=== PATIENT | male | born 1995 | race Caucasian/White ===

== ENCOUNTER 2024-08-20 13:00 | Outpatient (CLI) | payer OTHER, SELFPAY ==
[2024-08-20 13:24] LABS: Hemoglobin 15.2 g/dL (14.0-18.0); Mean Corpuscular HGB Conc 34.5 g/dl (32-36); Mean Corpuscular Hemoglobin 30.4 pg (26-34); Mean Platelet Volume 9.7 fl (7.4-10.4); Platelet Count Result 263 k/mm3 (150-375); Red Cell Distribution Width 12.2 % (11.5-14.5)
[2024-08-20 13:34] LABS: Alanine Aminotransferase 20 U/L (6-50); Albumin Level 4.8 g/dL (3.5-5.1); Alkaline Phosphatase 51 U/L (38-126); Anion Gap 6 mmol/L (4-12); Aspartate Amino Transferase 25 U/L (17-59); Bilirubin,Total 0.9 mg/dL (0.2-1.3); Blood Urea Nitrogen 12 mg/dL (9-20); Carbon Dioxide 29 mmol/L (22-30); Chloride 102 mmol/L (98-107); Cholesterol 217 mg/dL (0-200); Estimated Glomerular Filt Rate > 60; Glucose 100 mg/dL (65-110); HDL Direct 35 mg/dL; Potassium 4.2 mmol/L (3.4-5.0); Sodium 137 mmol/L (137-145); Triglycerides 81 mg/dL (<150)
[2024-08-20 13:45] LABS: LDL Cholesterol Direct 144 mg/dL
[2024-08-20 14:05] LABS: Thyroid Stimulating Hormone 0.513 uIU/mL (0.465-4.680)
[2024-08-20 14:49] LABS: Vitamin D 25 Hydroxy 34.2 ng/mL
== END 2024-08-20 13:01 | disposition home or self-care (01) ==
LOC: ANHLAB 13:06
PROVIDERS: PCP Emergency Medicine; Visit Provider Emergency Medicine
DX: E55.9 Vitamin D deficiency, unspecified (principal); R53.83 Other fatigue; E03.9 Hypothyroidism, unspecified; E78.5 Hyperlipidemia, unspecified
CPT/HCPCS: 36415; 80053; 80061; 82306; 84443; 85027

== ENCOUNTER 2024-09-01 13:54 | Emergency (ER) | payer OTHER, SELFPAY ==
--- NOTE | ~2024-09-01 | CT_ITS ---
CT pelvis w con Ordering provider: Dustin Cohen MD History: . POSSIBLE ANAL MASS . Comparison: None. Technique: CT pelvis without oral and IV contrast. . Automated exposure control and iterative recons truction technique were employed. The dose-length product was 243.93 mGy-cm. 100 mL Omnipaque 350 was given. Findings: BONES: No pelvic fracture or hip dislocation. Normal visualized lower lumbar spine. The hip and sacro iliac joint spaces are well maintained. SUPERFICIAL SOFT TISSUES: Normal. PELVIC ORGANS: The bladder is normal. VISUALIZED BOWEL AND MESENTERY: Normal. No free air or free fluid. No lymphadenopathy. RETROPERITONEUM: Normal IMPRESSION: No definite perianal abnormality seen.If Clinically still suspicious follow-up advised. No bone and mid seen. Reviewed, dictated and finalized at location A.
[2024-09-01 13:55] VITALS: BP 122/81; PULSE 83; RESP 16; TEMP 36.5; O2SAT 100
--- NOTE | 2024-09-01 15:48 | ED.GENADULT ---
HPI - General Adult General Chief complaint: Unspecified Stated complaint: mass in rectum Time Seen by Provider: 09/01/24 15:45 Source: patient Related Data Allergies Allergy/AdvReac Type Severity Reaction Status Date / Time No Known Allergies Allergy Verified 08/19/24 13:41 [facility] Past Medical History Medical History (Updated 09/01/24 @ 17:37 by Dustin Cohen MD) Patient denies medical problems Surgical History Surgical History (Updated 08/19/24 @ 13:42 by Mamie Ardon MA) History of tonsillectomy Hx of adenoidectomy Family History Family History (Updated 08/19/24 @ 13:44 by Mamie Ardon MA) Mother IBS (irritable bowel syndrome) Social History Social History (Updated 08/19/24 @ 13:44 by Mamie Ardon MA) Smoking status: Smoker, status unknown Alcohol intake: never Substance use: never Substance use type: does not use Do You Feel Safe in your Home?: Yes Lack of Transportation: No Lack of Food: Never True Current Housing: I Have Housing Concerned About Future Housing: No Difficulty Paying Gas/Electric Bills: No Difficulty Paying for Meds: No Currently Unemployed: No Education: Associate Degree Difficulty w/ Childcare or Family Care: No Course Vital Signs Vital signs: Vital Signs Temperature 36.5 C 09/01/24 13:55 Pulse Rate 83 09/01/24 13:55 Respiratory Rate 16 09/01/24 13:55 Blood Pressure 122/81 09/01/24 13:55 Pulse Oximetry 100 09/01/24 13:55 Oxygen Delivery Room Air 09/01/24 13:55 Temperature 36.5 C 09/01/24 13:55 Pulse Rate 83 09/01/24 13:55 Respiratory Rate 16 09/01/24 13:55 Blood Pressure 122/81 09/01/24 13:55 Pulse Oximetry 100 09/01/24 13:55 Oxygen Delivery Room Air 09/01/24 13:55 Medical Decision Making [facility] Narrative Medical decision making narrative: PATIENT CAME TO THE ED WITH ANY PAIN VITAL SIGNS ARE STABLE PHYSICAL EXAMINATION SHOWING SKIN TAG AND POSSIBLE ANAL FISSURE A BLOOD WORKUP SHOWED NO ACUTE ABNORMALITY, CT PELVIS WITH IV CONTRAST SHOWED NO ACUTE ABNORMALITIES. 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 A PRESCRIPTION OF NIFEDIPINE OINTMENT TO 2% WAS GIVEN TO THE PATIENT PRIOR TO DISCHARGE Differential Diagnosis Differential Diagnosis: ANAL FISSURE, HEMORRHOIDS, ANAL MASS Vital Signs Vital Signs: Vital Signs Temperature 36.5 C 09/01/24 13:55 Pulse Rate 83 09/01/24 13:55 Respiratory Rate 16 09/01/24 13:55 Blood Pressure 122/81 09/01/24 13:55 Pulse Oximetry 100 09/01/24 13:55 Oxygen Delivery Room Air 09/01/24 13:55 Temperature 36.5 C 09/01/24 13:55 Pulse Rate 83 09/01/24 13:55 Respiratory Rate 16 09/01/24 13:55 Blood Pressure 122/81 09/01/24 13:55 Pulse Oximetry 100 09/01/24 13:55 Oxygen Delivery Room Air 09/01/24 13:55 Imaging Data Radiologist's impression: Impressions Pelvis CT 09/01/24 17:21 IMPRESSION: No definite perianal abnormality seen.If Clinically still suspicious follow-up advised. No bone and mid seen. Critical Care Time Critical Care Time Critical Care Time: No Discharge Plan Discharge Clinical Impression: Anal pain Patient Disposition: Home, Self-Care Condition: Stable Prescriptions: New docusate sodium [Colace] 100 mg capsule 100 mg PO BID Qty: 20 0RF No Action hydrocortisone acetate [Anusol-HC] 25 mg suppository 25 mg RECTAL DAILY Qty: 24 0RF hydrocortisone [Anusol-HC] 2.5 % cream with perineal applicator 1 applic RECTAL TID PRN (Reason: hemorrhoids) Qty: 30 0RF Follow-up/Referrals: Monico Silverio MD [Physician] - 09/02/24 Aaron Guerrero MD [Primary Care Provider] -
[2024-09-01 16:24] VITALS: BP 153/76; PULSE 67; RESP 15; TEMP 36.9; O2SAT 99
[2024-09-01 16:28] LABS: Basophils Absolute Auto 0.1 K/mm3 (0.0-0.1); Basophils Percent Auto 1.3 % (0.2-1.2); Eosinophils Absolute Auto 0.2 K/mm3 (0-0.3); Eosinophils Percent Auto 4.4 % (0-4.4); Hemoglobin 14.8 g/dL (14.0-18.0); Lymphocytes Absolute Auto 1.76 K/mm3 (0.9-3.2); Lymphocytes Percent Auto 33.3 % (18.3-44.2); Mean Corpuscular HGB Conc 34.4 g/dl (32-36); Mean Corpuscular Volume 87.2 fl (80-100); Mean Platelet Volume 9.6 fl (7.4-10.4); Monocytes Absolute Auto 0.4 K/mm3 (0.1-0.6); Monocytes Percent Auto 7.8 % (2.6-8.5); Neutrophils Absolute Auto 2.8 K/mm3 (1.3-6.7); Neutrophils Percent Auto 53.2 % (45.5-73.1); Platelet Count Result 266 k/mm3 (150-375); Red Blood Count 4.93 M/mm3 (4.6-6.20); Red Cell Distribution Width 12.4 % (11.5-14.5); White Blood Count 5.3 K/mm3 (4.5-10.0)
[2024-09-01 16:44] LABS: Alanine Aminotransferase 18 U/L (6-50); Albumin Level 4.5 g/dL (3.5-5.1); Alkaline Phosphatase 55 U/L (38-126); Anion Gap 9 mmol/L (4-12); Aspartate Amino Transferase 22 U/L (17-59); Bilirubin,Total 0.7 mg/dL (0.2-1.3); Blood Urea Nitrogen 13 mg/dL (9-20); Carbon Dioxide 27 mmol/L (22-30); Chloride 103 mmol/L (98-107); Estimated CRCL calculation 98 ml/min; Estimated Glomerular Filt Rate > 60; Glucose 92 mg/dL (65-110); Potassium 4.3 mmol/L (3.4-5.0); Sodium 139 mmol/L (137-145)
[2024-09-01 16:51] LABS: Estimated CRCL calculation 89 ml/min; Estimated Glomerular Filt Rate > 60
--- NOTE | 2024-09-05 23:16 | ED.GENADULT ---
HPI - General Adult General Chief complaint: Unspecified Stated complaint: mass in rectum Time Seen by Provider: 09/01/24 15:45 Source: patient and family Mode of arrival: ambulatory Limitations: no limitations History of Present Illness HPI narrative: patient is 29 years old white male came to the ED with feeling a mass like feeling in the rectum for months getting worse over the last few days mainly with bowel movements. He denies any bleeding, patient been using Anusol suppository without any significant changes he denies any fever, chills, nausea, vomiting or abdominal pain Related Data Allergies Allergy/AdvReac Type Severity Reaction Status Date / Time No Known Allergies Allergy Verified 08/19/24 13:41 Review of Systems Review of Systems: All systems reviewed & are unremarkable except as noted in HPI and below PMFSH Past Medical History Medical History Patient denies medical problems Surgical History Surgical History History of tonsillectomy Hx of adenoidectomy Family History Family History Mother IBS (irritable bowel syndrome) Social History Social History Smoking status: Smoker, status unknown Alcohol intake: never Substance use: never Substance use type: does not use Do You Feel Safe in your Home?: Yes Lack of Transportation: No Lack of Food: Never True Current Housing: I Have Housing Concerned About Future Housing: No Difficulty Paying Gas/Electric Bills: No Difficulty Paying for Meds: No Currently Unemployed: No Education: Associate Degree Difficulty w/ Childcare or Family Care: No Exam Narrative: General appearance: Well-developed, well-nourished Skin: Normal color Head: Normocephalic, nontraumatic Eyes: Clear conjunctiva ENT: Oropharynx normal, ears normal, nose normal Neck: Supple, nontender Chest and respiratory: Airway patent, no respiratory distress, no accessory muscle use Heart: Regular rate/rhythm Abdomen: Soft, nontender, no organomegaly, quiet bowel sounds rectal exam showing a lot of skin tags at the anal area, severe tenderness, no mass, no hemorrhoids, anal fissure is a possibility Vascular: Normal peripheral pulses, normal capillary refill. Musculoskeletal: Normal range of motion, nontender back Neurologic: Alert and oriented ?3, PROPERTY ANALYST is normal as tested, no gross motor deficit Course Vital Signs Vital signs: Vital Signs Temperature 36.5 C 09/01/24 13:55 Pulse Rate 83 09/01/24 13:55 Respiratory Rate 16 09/01/24 13:55 Blood Pressure 122/81 09/01/24 13:55 Pulse Oximetry 100 09/01/24 13:55 Oxygen Delivery Room Air 09/01/24 13:55 Temperature 36.9 C 09/01/24 16:24 Pulse Rate 67 09/01/24 16:24 Respiratory Rate 15 09/01/24 16:24 Blood Pressure 153/76 H 09/01/24 16:24 Pulse Oximetry 99 09/01/24 16:24 Oxygen Delivery Room Air 09/01/24 13:55 Medical Decision Making MDM Narrative Medical decision making narrative: differential diagnosis include anal fissure versus proctitis Workup today and CT scan of the pelvic area showed no mass no abscess, Discharged on a calcium channel kwaku appointment and follow-up with surgery Vital Signs Vital Signs: Vital Signs Temperature 36.5 C 09/01/24 13:55 Pulse Rate 83 09/01/24 13:55 Respiratory Rate 16 09/01/24 13:55 Blood Pressure 122/81 09/01/24 13:55 Pulse Oximetry 100 09/01/24 13:55 Oxygen Delivery Room Air 09/01/24 13:55 Temperature 36.9 C
== END 2024-09-01 18:26 | disposition home or self-care (01) ==
PROVIDERS: Emergency Provider Emergency Medicine; PCP Emergency Medicine
DX: K62.89 Other specified diseases of anus and rectum (principal)
CPT/HCPCS: 36415; 72193; 80053; 85025; 99284; Q9967

== ENCOUNTER 2024-09-26 01:35 | Day surgery (SDC) | payer OTHER, SELFPAY ==
[2024-09-20 09:47] VITALS: BMI 22.4
--- NOTE | 2024-09-20 09:48 | PC.NURSE ---
Report to the Outpatient Waiting Room, entrance under the green pavilion located off [facility], at time _1130_ on date _[id number]_. Planned Procedure Time: _130pm_.? Time changes happen often and if your time is changed the preop area will call you the afternoon before. - You and your visitor will be asked to self-screen and do not enter if you have any COVID symptoms. Please call surgeon if you need to reschedule. - A mask is optional within the hospital at this time. Patients may have clear liquids (water, carbonated beverages, clear teas, apple juice) until 3 hours prior to surgery with a maximum of 20 ounces. - No food from midnight until time of surgery and no smoking Take only the following medications with a SIP of water on the morning of surgery: __None____ DO NOT STOP ANY OF YOUR OTHER PRESCRIPTION MEDICATIONS PRIOR TO SURGERY EXCEPT THE FOLLOWING Medications to discontinue per physician ____None___ Please no make-up, nail serbian, hairspray, perfume, deodorant, or body powder the day of surgery.? No jewelry (including any body piercings) or valuables the day of surgery, leave them at home.? Please take a shower or bath the night before, or the morning of, surgery with an antibacterial soap.? Wear comfortable, loose fitting clothing.? - Jewelry must be removed prior to entering the operating room.? Rings and piercings that are not removed may be cut off. - The hospital will not accept responsibility for valuables.? - Please leave all valuables, including medications, at home the day of surgery. If you are going home after surgery, a licensed sheet pile driver operator must drive you home.? - NO public transportation without another adult if you receive anesthesia. - We recommend that an adult stay with you for 24 hours following discharge. - We also recommend that you do not drive, make important decision, drink alcoholic beverages, or take any drugs that were not prescribed by your health care provider for at least 24 hours after your discharge time. Follow any additional instructions given to you from your surgeon. Telephone instructions given to __Chris__and asked if any additional questions and then verbalized understanding. Patient advised to call surgeon office or pre surgery nurse liaison [phone] if any additional questions.
--- NOTE | 2024-09-20 09:56 | PC.NURSE ---
Report to the Outpatient Waiting Room, entrance under the green pavilion located off [facility], at time _1130_ on date _[id number]_. Planned Procedure Time: _130pm_.? Time changes happen often and if your time is changed the preop area will call you the afternoon before. - You and your visitor will be asked to self-screen and do not enter if you have any COVID symptoms. Please call surgeon if you need to reschedule. - A mask is optional within the hospital at this time. Clear liquids only day before surgery. - No food or drink from midnight until time of surgery and no smoking, no Vaping. Take Dulcolax 5mg 2 tabs at bedtime 09-24 and 09-25. Do Fleets enema night before surgery and morning of surgery. Take only the following medications with a SIP of water on the morning of surgery: _None DO NOT STOP ANY OF YOUR OTHER PRESCRIPTION MEDICATIONS PRIOR TO SURGERY EXCEPT THE FOLLOWING Medications to discontinue per physician ___None____ Please no make-up, nail estonian, hairspray, perfume, deodorant, or body powder the day of surgery.? No jewelry (including any body piercings) or valuables the day of surgery, leave them at home.? Please take a shower or bath the night before, or the morning of, surgery with an antibacterial soap.? Wear comfortable, loose fitting clothing.? - Jewelry must be removed prior to entering the operating room.? Rings and piercings that are not removed may be cut off. - The hospital will not accept responsibility for valuables.? - Please leave all valuables, including medications, at home the day of surgery. If you are going home after surgery, a licensed ems driver must drive you home.? - NO public transportation without another adult if you receive anesthesia. - We recommend that an adult stay with you for 24 hours following discharge. - We also recommend that you do not drive, make important decision, drink alcoholic beverages, or take any drugs that were not prescribed by your health care provider for at least 24 hours after your discharge time. Follow any additional instructions given to you from your surgeon. Telephone instructions given to _Kulwant__and asked if any additional questions and then verbalized understanding. Patient advised to call surgeon office or pre surgery nurse liaison [phone] if any additional questions.
[2024-09-26] VITALS (7 sets, daily range): BP systolic 100–137; BP diastolic 50–83; PULSE 60–89; RESP 11–20; TEMP 36.1; O2SAT 97–100
--- NOTE | 2024-09-26 11:35 | WPDHPUPDATE1 ---
History and Physical Update Update Date/Time: 09/26/24 11:35 History and Physical has been reviewed, including an updated exam of the patient. There are NO changes in the patient's condition. Risks, benefits, and alternatives have been discussed and questions answered. Patient agrees to proceed with procedure.
[2024-09-26] MEDS: ACETAMINOPHEN 500 MG TABLET 1000 MG PO (12:08)
[2024-09-26] MEDS: LACTATED RINGERS 1,000 ML 30 ML IV CONT (12:10)
[2024-09-26] MEDS: KETOROLAC 15 MG/ML VIAL (*BKC) IV PUSH (12:12)
--- NOTE | 2024-09-26 13:37 | P.PNAN_ITS ---
Anes - Initial Pre Proc Eval Procedure: Operation Date: 09/26/24 13:30 Proposed Procedures p Rectal Examination Under Anesthesia, Transanal Excision Rectal Mass, Removal of External Hemorrhoids - Monico Silverio MD Date/Time: 09/26/24 13:37 Surgeon: Monico Silverio MD Pre Op Diagnosis: Rectal Mass, External Hemorrhoids Patient Data Age: 29 Gender: M Height: 1.83 m Weight: 70.5 kg Last Vital Signs Temp 97.0 F L 09/26/24 11:32 Pulse 68 09/26/24 11:32 Resp 20 09/26/24 11:32 BP 122/56 L 09/26/24 11:32 Pulse Ox 99 09/26/24 11:32 O2 Del Method Room Air 09/26/24 11:32 Allergies Allergy/AdvReac Type Severity Reaction Status Date / Time No Known Allergies Allergy Verified 09/26/24 11:32 Home Medications Medication Instructions Recorded Confirmed Type No Home Medications 09/20/24 09/26/24 History Patient hx anesthesia problems: none Family hx anesthesia problems: none Results Review: All pre-operative results and documents have been reviewed as part of the pre- operative evaluation. [facility] Past Medical History Medical History Patient denies medical problems Surgical History Surgical History History of tonsillectomy Hx of adenoidectomy Family History Family History Mother IBS (irritable bowel syndrome) Social History Social History Years smoked: 12 Smoking status: Current every day smoker Tobacco type: e-cigarettes/vaping Alcohol intake: current Substance use: never Substance use type: does not use Do You Feel Safe in your Home?: Yes Lack of Transportation: No Lack of Food: Never True Current Housing: I Have Housing Concerned About Future Housing: No Difficulty Paying Gas/Electric Bills: No Difficulty Paying for Meds: No Currently Unemployed: No Education: Associate Degree Difficulty w/ Childcare or Family Care: No Living arrangements: with family Spiritual care concerns: No Anes - Eval Final PreProcedure Day of Procedure 09/26/24 13:37 Patient weight: normal Heart: regular rate and rhythm Lungs: clear to auscultation Airway: Mallampati scale class II Neurological: alert and oriented Last oral intake: >/= 8 hours ASA classification: II Emergent: no Anesthetic plan: proceed Anesthesia type and monitoring: general ETT and standard monitoring Results Review: All pre-operative results and documents have been reviewed as part of the pre- operative evaluation. Informed Consent: The patient's anesthetic plan and its attendant risks and benefits were discussed with the patient/family/POA. Questions were solicited and answers provided to the satisfaction of the patient/family/POA.
[2024-09-26] MEDS: ceFAZolin 2 GM/D5W 50 ML 2 GM/50 ML BAG IVPB (13:43)
[2024-09-26] MEDS: BUPIVACAINE/EPINEPHRINE 0.5% 50 ML VIAL 40 ML INFILTRATE (14:09)
--- NOTE | 2024-09-26 14:42 | P.OP_ITS ---
Procedure Note - Detailed Date of Procedure 09/26/24 Pre-op Diagnosis Rectal Mass, External Hemorrhoids Post-op Diagnosis Same Procedure Performed Transanal excision rectal mass x2, excision posterior midline external hemorrhoids, excision left lateral thrombosed external hemorrhoid Surgeon Monico Silverio MD Grease Renderer Cherise Mena [facility] Anesthesia General and Local Indications Patient had been noticing rectal pain that would last for 1-3 hours after bowel movement. His exam showed a mobile, pedunculated rectal mass that was very tender. This mass would prolapse after bowel movements and he would have to push it is in. He was also noted to have extensive external hemorrhoids. He is taken to surgery now for transanal excision of rectal polyp and excision external hemorrhoids. Findings The large pedunculated rectal mass appeared to be a large fibro epithelial polyp measuring 3 x 2 cm. It was on a stalk of about 1 cm x 0.5 cm. There was a 2nd fibroepithelial polyp or possibly internal hemorrhoid which was much smaller and was on the right of midline. The larger mass was just left of midline. In addition, he had external hemorrhoids that were large in the posterior midline. He also had another set of external hemorrhoids in the left lateral position that were quite large. In excising the left lateral external hemorrhoids there was noted to be clot within the hemorrhoid suggesting a thrombosed external hemo rrhoid. No other anal canal pathology was found. Description of Procedure Patient was taken to surgery and induced into general anesthesia. He was then placed in prone gaurav-knife position. The buttocks were taped apart. Prep and drape was carried out. Digital exam was performed and the large pedunculated rectal mass was easily found. Hill-Souza anoscope were inserted into the rectum and inspection was carried out as well. Findings were as above. I was then able to prolapse the large pedunculated rectal mass. I exposed the stalk using Hill-Souza anoscope and retraction. I then used the cautery and divided the mass at the base of the stalk. Cautery was used to achieve good hemostasis as well. Specimen was sent to pathology labeled left-sided rectal mass. There was also a smaller rectal mass just to the right of midline. This was also excised with the cautery. No other internal or rectal lesions were noted. Local anesthetic was then infiltrated thoroughly throughout the rectal area. 20 cc deep subdermal and 20 cc intro sphincteric were infiltrated. I then used the Maria Eugenia anoscope and exposed the posterior midline external hemorrhoids. These were fairly superficial and were excised with the cautery and sent as a specimen. Was not necessary to close the base of these hemorrhoids. Cautery was used for hemostasis. In the left lateral position there was a larger external hemorrhoid. I excised this external hemorrhoid and noted clot within the hemorrhoid as it was being excised. This wound was closed with running locking 4-0 chromic suture. Her recheck the rectal and anal area. There was no other pathology noted. There was no bleeding. We then dressed the perianal area with serous form gauze, fluffs, and Medipore tape. Patient was returned to a supine position. He was awakened, extubated, and taken to recovery in good condition. Sponge and needle counts were correct x2. Estimated Blood Loss -5 Drains No Packing No Pathology Yes (Left rectal mass, right neck no mass, posterior midline external hemorrhoids, left lateral thrombosed external hemorrhoid) Complications None Condition Stable Disposition PACU [facility] Billing Surgery - Charge Forward: Surgery Billing (Excision rectal masses x2, excision external hemorrhoid, excision thrombosed external hemorrhoid)
== END 2024-09-26 16:15 | disposition home or self-care (01) ==
PROVIDERS: PCP Emergency Medicine; Visit Provider Surgery
PROC: (CPT 46230; principal; 2024-09-26 13:30)
DX: K62.89 Other specified diseases of anus and rectum (principal); K64.8 Other hemorrhoids; K64.4 Residual hemorrhoidal skin tags; F17.290 Nicotine dependence, other tobacco product, uncomplicated
CPT/HCPCS: 46230; 46320; 46999; 88304; 88305; A9270; J0690; J1100; J1885; J2003; J2250; J2405; J2704; J3010; J7120